=== PATIENT | female | born 1970 | race American Indian/Alaskan Native ===

== ENCOUNTER 2021-11-29 09:43 | Emergency (ER) | payer SELFPAY ==
[2021-11-29 10:09] VITALS: BP 127/73
== END 2021-11-29 19:07 | disposition left against medical advice (07) ==
LOC: ED 09:43
DX: R07.89 Other chest pain (principal); Z53.21 Procedure and treatment not carried out due to patient leaving prior to being seen by health care provider
CPT/HCPCS: 93005